=== PATIENT | female | born 2000 | race Two or more races ===

== ENCOUNTER 2020-11-28 00:36 | Emergency (ER) | payer OTHER ==
[~2020-11-28] VITALS: Ht 149.9 cm; Wt 39.0 kg
[2020-11-28] MEDS ORDERED: TESSALON PERLE100 M1 PO (07:32)
[2020-11-28] MEDS ORDERED: ZITHROMAX500 MG PO (07:32)
[2020-11-28] MEDS ORDERED: ZOFRAN8 MG PO (07:32)
[2020-11-28] MEDS ORDERED: PEPCID40 MG PO (07:32)
== END 2020-11-28 08:13 ==
LOC: ER 00:36
DX: A49.3 Mycoplasma infection, unspecified site (principal); R50.9 Fever, unspecified; Z03.818 Encounter for observation for suspected exposure to other biological agents ruled out

== ENCOUNTER 2023-02-17 19:21 | Emergency (ER) | payer OTHER ==
[~2023-02-17] VITALS: Ht 152.4 cm; Wt 45.4 kg
[~2023-02-17 19:21] MED LIST: PEPCID40 MG PO; TESSALON PERLE100 M1 PO; ZITHROMAX500 MG PO; ZOFRAN8 MG PO
[2023-02-17] MEDS ORDERED: DICLOFENAC POTA50 MG PO (23:36)
[2023-02-17] MEDS ORDERED: CYCLOBENZAPRINE10 MG PO (23:36)
== END 2023-02-17 23:40 | disposition home or self-care (01) ==
LOC: ER 19:22
DX: M54.9 Dorsalgia, unspecified (principal)